=== PATIENT | male | born 1970 | race Caucasian/White ===

== ENCOUNTER 2021-10-26 13:53 | Emergency (ER) | payer MEDICAID ==
[~2021-10-26] VITALS: Ht 172.7 cm; Wt 66.0 kg
[~2021-10-26 13:53] MED LIST: FOLI1TAB63 PO; HYDR-4134 PO; INSLAN; NIFE10CA PO; NON
[2021-10-26] MEDS ORDERED: SODIUM CHLORIDE 0.9% 500 ML IV ONE (15:00)
[2021-10-26] MEDS ORDERED: HYDROCODONE/ACETAMINOPHEN 5/325MG TABLET PO ONE (15:45)
[2021-10-26 17:09] LABS: BASOPHILS % 1.9 % (0.0-2.0); EOSINOPHILS % 2.5 % (0.0-5.0); HEMATOCRIT. 34.7 % (42.0-52.0); HEMOGLOBIN. 10.9 g/dL (14.0-18.0); LYMPHOCYTES % 8.4 % (20.0-50.0); MEAN CORPUSCULAR HEMOGLOBIN 28.9 pg (28.0-32.0); MEAN PLATELET VOLUME 7.4 fl (7.4-10.4); MONOCYTES % 5.6 % (2.0-8.0); NEUTROPHILS % 81.6 % (40.0-76.0); PLATELET 297 x1000/uL (130-400); RED BLOOD CELL COUNT 3.78 mill/uL (4.7-6.1); RED CELL DISTRIBUTION WIDTH 17.2 % (11.6-14.6)
[2021-10-26 17:17] LABS: CHLORIDE 100 mEq/L (98-107)
[2021-10-26] MEDS ORDERED: MORPHINE SULFATE 4 MG/ML CPJ (NOT FOR IM USE) IV STA (17:37)
[2021-10-26] MEDS ORDERED: ONDANSETRON HCL 4MG/2ML INJ IV STA (17:37)
[2021-10-26] MEDS ORDERED: PIPERACILLIN/TAZOBACTAM 3.375GM/50ML PREMIX IV ONE (19:00)
[2021-10-26] MEDS ORDERED: PIPERACILLIN/TAZ 3.375G PREMIX 50 ML IV NR (19:15)
[2021-10-26 21:30] VITALS: BP 154/48
== END 2021-10-26 21:32 | disposition short-term general hospital (02) ==
LOC: ER 14:04
DX: E87.70 Fluid overload, unspecified (principal); I95.9 Hypotension, unspecified; Z20.822 Contact with and (suspected) exposure to COVID-19; I12.0 Hypertensive chronic kidney disease with stage 5 chronic kidney disease or end stage renal disease; E11.22 Type 2 diabetes mellitus with diabetic chronic kidney disease; N18.6 End stage renal disease; R53.1 Weakness; Z99.2 Dependence on renal dialysis; Z79.84 Long term (current) use of oral hypoglycemic drugs; Z79.4 Long term (current) use of insulin; Z89.112 Acquired absence of left hand; Z89.422 Acquired absence of other left toe(s)
CPT/HCPCS: 36415; 71045; 80053; 82962; 85025; 87040; 87426; 93005; 96361; 96365; 96375; 99285; C9803; J2270; J2405; J2543